=== PATIENT | female | born 1955 | race African-American/Black ===

== ENCOUNTER 2019-02-05 22:29 | Inpatient (IN) ==
[2019-02-05] MEDS ORDERED: ACETAMINOPHEN 500 MG TABLET PO STA (23:05)
[2019-02-05] MEDS ORDERED: SODIUM CHLORIDE 0.9% 1,000 ML IV STA (23:05)
[2019-02-06 00:52] LABS: PT Patient Result 11.2 SECS (9.6-12.2)
[2019-02-06] MEDS ORDERED: SODIUM CHLORIDE 0.9% 2,550 ML IV ONE (01:14)
[2019-02-06 01:15] LABS: Basophils % 0.3 % (0.0-0.8); Hematocrit 34.6 VOL% (35.7-47.0); Hemoglobin 11.3 GM/DL (12.0-16.0); Immature Granulocytes % 0.3 %; Immature Granulocytes Absolute 0.01 #; Lymphocytes # 0.1 10*3/uL (1.4-4.0); Lymphocytes % 4.6 % (21.3-54.2); Mean Corpuscular HGB Conc 32.7 GM/DL (32-36); Mean Corpuscular Volume 80.5 FL (87-102); Mean Platelet Volume 10.1 FL (9.6-12.0); Monocytes % 0.7 % (1.7-12.7); NRBC # 0.13 10*3/uL; Neutrophils % 94.1 % (38.7-73.9); Platelet Count 150 T/CUMM (130-400); Red Cell Distribution Width 13.4 % (9.3-17.3)
[2019-02-06 01:29] LABS: Apearance,Urine CLEAR (Clear); Bilirubin,Urine Negative (Negative); Blood, Urine Negative (Negative); Glucose,Urine (UA) Negative (Negative); Ketones,Urine Negative (Negative); Nitrite,Urine Negative (Negative); Protein,Urine Negative; RBC,Urine 2 /HPF (0-4); Squamous Epithelial Cell,Urine Occasional /HPF (0-10); Urine Color Yellow (Yellow); Urine Urobilinogen < 2.0 EU/DL (0.2-1.0); WBC,Urine 2 /HPF (0-6)
[2019-02-06 01:38] LABS: Alanine Aminotransferase 22 U/L (13-56); Albumin 3.1 G/DL (3.4-5.0); Alkaline Phosphatase 100 U/L (45-117); Amylase 24 U/L (25-115); Aspartate Amino Transferase 37 U/L (0-37); Blood Urea Nitrogen 10 MG/DL (7-18); Calcium 8.4 MG/DL (8.5-10.1); Estimated Glom Filtration Rate 60 ML/MIN; Glucose 136 MG/DL (74-106); Osmolality,Calculated 275.7 MOS/KG (273-304); Total Protein 6.3 G/DL (6.4-8.3)
[2019-02-06 01:42] LABS: Band Neutrophils 4 % (0-10); Lymphocytes 9 % (20-55); Nucleated Red Blood Cells 3 (0-5); Segmented Neutrophils 87 % (50-85); Total Cells Counted 100
[2019-02-06 01:43] LABS: Hypochromasia 1+; Platelet Estimate Normal; Smudge Cells Few
[2019-02-06 01:44] LABS: Microcytosis 1+; Polychromasia Slight; Target Cells 1+
[2019-02-06 01:45] LABS: Stomatocytes Slight
[2019-02-06] MEDS ORDERED: POTASSIUM CHLORIDE RIDER 20 MEQ in PREMIX 1 EACH IV STA ×2 (01:45→02:25)
[2019-02-06 01:48] LABS: Sedimentation Rate-Westergren 3 MM/HR (0-30)
[2019-02-06] MEDS ORDERED: VANCOMYCIN INJ 1,250 MG in SODIUM CHLORIDE 0.9% 250 ML IV ONE (02:00)
[2019-02-06] MEDS ORDERED: ACETAMINOPHEN 325 MG TABLET PO PRN (04:07)
[2019-02-06] MEDS ORDERED: PROMETHAZINE 25 MG/1 ML VIAL IM PRN (04:07)
[2019-02-06] MEDS ORDERED: ONDANSETRON 4 MG/2 ML VIAL IV PRN (04:07)
[2019-02-06 04:26] LABS: Barbiturates Screen,Urine Negative (Negative); Benzodiazepines Screen,Urine Negative (Negative); Cannabinoid Screen,Urine Negative (Negative); Opiate Screen,Urine Negative (Negative); Phencyclidine Screen,Urine Negative (Negative)
[2019-02-06] MEDS ORDERED: LEVOFLOXACIN INJ 500 MG in PREMIX 1 EACH IV SCH (04:30)
[2019-02-06] MEDS ORDERED: MAGNESIUM SULF RIDER 2 GM in PREMIX 1 EACH IV PRN (04:35)
[2019-02-06] MEDS ORDERED: MAGNESIUM SULF RIDER 4 GM in PREMIX 1 EACH IV PRN (04:35)
[2019-02-06] MEDS ORDERED: POTASSIUM CHLORIDE 20 MEQ TABLET PO PRN (04:35)
[2019-02-06 06:42] LABS: Basophils % 0.4 % (0.0-0.8); Eosinophils % 0.4 % (0.00-10.9); Hematocrit 40.2 VOL% (35.7-47.0); Hemoglobin 12.6 GM/DL (12.0-16.0); Immature Granulocytes % 1.2 %; Immature Granulocytes Absolute 0.06 #; Lymphocytes # 0.7 10*3/uL (1.4-4.0); Lymphocytes % 14.2 % (21.3-54.2); Mean Corpuscular HGB Conc 31.3 GM/DL (32-36); Mean Corpuscular Volume 83.9 FL (87-102); Monocytes % 1.2 % (1.7-12.7); NRBC # 0.43 10*3/uL; Neutrophils % 82.6 % (38.7-73.9); Red Blood Count 4.79 MC/CUMM (3.8-5.5); Red Cell Distribution Width 14.6 % (9.3-17.3); White Blood Count 5.1 T/CUMM (4-12)
[2019-02-06 06:47] LABS: Platelet Count 18 T/CUMM (130-400)
[2019-02-06 07:02] LABS: Albumin 2.7 G/DL (3.4-5.0); Bilirubin,Total 4.1 MG/DL (0.2-1.0); Calcium 7.9 MG/DL (8.5-10.1); Osmolality,Calculated 290.4 MOS/KG (273-304); Total Protein 5.5 G/DL (6.4-8.3)
[2019-02-06 07:11] LABS: Band Neutrophils 18 % (0-10); Lymphocytes 19 % (20-55); Nucleated Red Blood Cells 25 (0-5); Platelet Estimate Decreased; Segmented Neutrophils 60 % (50-85); Total Cells Counted 100
[2019-02-06 07:12] LABS: Anisocytosis 2+; Macrocytosis 1+; Poikilocytosis Slight
[2019-02-06] MEDS ORDERED: GLUCAGON 1 MG VIAL ONE (07:39)
[2019-02-06] MEDS ORDERED: PROPOFOL 1,000 MG/100 ML BOTTLE IV ONE (08:04)
[2019-02-06] MEDS ORDERED: SODIUM CHLORIDE 0.9% 1,000 ML IV ONE (08:08)
[2019-02-06] MEDS ORDERED: HYDROCORTISONE 100 MG VIAL IV STA (08:20)
[2019-02-06] MEDS ORDERED: NOREPINEPHRINE 4 MG/4 ML VIAL IV ONE (08:22)
[2019-02-06] MEDS: NOREPINEPHRINE 8 MG in SODIUM CHLORIDE 0.9% 242 ML IV PRN ×4 (08:26→20:42)
[2019-02-06] MEDS ORDERED: PROPOFOL 1,000 MG/100 ML BOTTLE IV SCH (08:30)
[2019-02-06] MEDS ORDERED: POTASSIUM CHLORIDE RIDER 10 MEQ in PREMIX 1 EACH IV PRN (08:32)
[2019-02-06] MEDS ORDERED: POTASSIUM CHLORIDE RIDER 20 MEQ in PREMIX 1 EACH IV PRN (08:32)
[2019-02-06] MEDS ORDERED: POTASSIUM CHLORIDE 20 MEQ/15 ML UDCUP PER TUBE ONE (08:33)
[2019-02-06 08:38] LABS: Allen Test Positive; Pt O2 Delivery Device Ventilator
[2019-02-06 08:39] LABS: ABG Base Excess -23.7 MMOL/L (-2.5-2.5); ABG HCO3 7.7 MMOL/L (20-26); ABG Oxygen Saturation 97.7 % (95-100); ABG PCO2 42.8 MM HG (35-48); ABG TCO2 8.7 MMOL/L (23-27)
[2019-02-06 08:40] LABS: ABG PH 6.907 (7.35-7.45)
[2019-02-06] MEDS ORDERED: SODIUM BICARBONATE 50 MEQ/50 ML VIAL IV ONE ×7 (08:41→19:55)
[2019-02-06] MEDS ORDERED: POTASSIUM CHLORIDE RIDER 100 ML IV ONE (08:42)
[2019-02-06] MEDS ORDERED: DOPamine 800 MG/250 ML PREMIX IV ONE (08:44)
[2019-02-06] MEDS ORDERED: LORazepam 2 MG/1 ML VIAL ONE (08:47)
[2019-02-06] MEDS ORDERED: LORazepam 2 MG/1 ML VIAL IV ONE (08:49)
[2019-02-06 08:53] LABS: Basophils % 0.2 % (0.0-0.8); Eosinophils # 0.1 10*3/uL (0.0-0.87); Eosinophils % 0.7 % (0.00-10.9); Hematocrit 30.3 VOL% (35.7-47.0); Immature Granulocytes % 1.8 %; Immature Granulocytes Absolute 0.16 #; Lymphocytes # 1.7 10*3/uL (1.4-4.0); Lymphocytes % 18.6 % (21.3-54.2); Mean Corpuscular HGB Conc 29.4 GM/DL (32-36); Mean Corpuscular Volume 88.3 FL (87-102); Monocytes % 0.6 % (1.7-12.7); NRBC # 0.71 10*3/uL; Neutrophils % 78.1 % (38.7-73.9); Red Blood Count 3.43 MC/CUMM (3.8-5.5); Red Cell Distribution Width 15.2 % (9.3-17.3); White Blood Count 8.9 T/CUMM (4-12)
[2019-02-06] MEDS ORDERED: fentaNYL INJ 1,250 MCG in SODIUM CHLORIDE 0.9% 225 ML IV PRN (08:56)
[2019-02-06] MEDS ORDERED: MIDAZOLAM 100 MG in SODIUM CHLORIDE 0.9% 80 ML IV PRN (08:56)
[2019-02-06 08:58] LABS: Platelet Count 28 T/CUMM (130-400)
[2019-02-06 08:59] LABS: Hemoglobin 8.9 GM/DL (12.0-16.0)
[2019-02-06] MEDS ORDERED: SERTRALINE 100 MG TABLET PO SCH (09:00)
[2019-02-06] MEDS ORDERED: PANTOPRAZOLE 40 MG TABLET PO SCH (09:00)
[2019-02-06] MEDS ORDERED: amLODIPine 10 MG TABLET PO SCH (09:00)
[2019-02-06] MEDS ORDERED: ENOXAPARIN 40 MG/0.4 ML SYRINGE SUBCUT SCH (09:00)
[2019-02-06] MEDS ORDERED: ASPIRIN EC 81 MG TABLET PO SCH (09:00)
[2019-02-06] MEDS ORDERED: GLUCAGON 1 MG VIAL IM ONE (09:05)
[2019-02-06 09:07] LABS: Albumin 1.5 G/DL (3.4-5.0); Bilirubin,Total 2.2 MG/DL (0.2-1.0); Calcium 6.6 MG/DL (8.5-10.1); Osmolality,Calculated 299.7 MOS/KG (273-304); Total Protein 3.4 G/DL (6.4-8.3)
[2019-02-06] MEDS: DOPamine 800 MG/250 ML PREMIX IV PRN ×2 (09:08→18:30)
[2019-02-06 09:17] LABS: Band Neutrophils 18 % (0-10); Lymphocytes 25 % (20-55); Metamyelocytes 5 %; Nucleated Red Blood Cells 16 (0-5); Platelet Estimate Decreased; Segmented Neutrophils 52 % (50-85); Total Cells Counted 100
[2019-02-06 09:19] LABS: Anisocytosis 1+; Macrocytosis 1+; Poikilocytosis Slight
[2019-02-06 09:34] LABS: ABG HCO3 9.7 MMOL/L (20-26); ABG PCO2 35.9 MM HG (35-48); ABG TCO2 9.5 MMOL/L (23-27); Allen Test Positive; Pt O2 Delivery Device Ventilator
[2019-02-06 09:36] LABS: ABG PH 7.041 (7.35-7.45)
[2019-02-06 09:45] LABS: Folate 14.3 NG/ML (5.4-24.0); Vitamin B12 224 PG/ML (211-911)
[2019-02-06 09:55] LABS: Basophils % 0.2 % (0.0-0.8); Eosinophils # 0.1 10*3/uL (0.0-0.87); Eosinophils % 0.7 % (0.00-10.9); Hematocrit 30.3 VOL% (35.7-47.0); Hemoglobin 8.9 GM/DL (12.0-16.0); Immature Granulocytes % 1.8 %; Immature Granulocytes Absolute 0.16 #; Lymphocytes # 1.7 10*3/uL (1.4-4.0); Lymphocytes % 18.6 % (21.3-54.2); Mean Corpuscular HGB Conc 29.4 GM/DL (32-36); Mean Corpuscular Volume 88.3 FL (87-102); Monocytes % 0.6 % (1.7-12.7); NRBC # 0.71 10*3/uL; Neutrophils % 78.1 % (38.7-73.9); Red Blood Count 3.43 MC/CUMM (3.8-5.5); Red Cell Distribution Width 15.2 % (9.3-17.3); White Blood Count 8.9 T/CUMM (4-12)
[2019-02-06 09:57] LABS: Platelet Count 28 T/CUMM (130-400)
[2019-02-06] MEDS ORDERED: SODIUM CHLORIDE 0.9% 1,000 ML IV PRN ×3 (09:57→19:17)
[2019-02-06 10:00] LABS: Band Neutrophils 18 % (0-10); Lymphocytes 25 % (20-55); Metamyelocytes 5 %; Segmented Neutrophils 52 % (50-85); Total Cells Counted 100
[2019-02-06 10:01] LABS: Anisocytosis 1+; Macrocytosis 1+; Platelet Estimate Decreased; Poikilocytosis Slight
[2019-02-06] MEDS: SODIUM BICARB INJ 150 MEQ in STERILE WATER INJ 850 ML IV SCH ×2 (10:07→14:51)
[2019-02-06] MEDS ORDERED: VASOPRESSIN 100 UNITS in SODIUM CHLORIDE 0.9% 95 ML IV PRN (10:29)
[2019-02-06] MEDS ORDERED: DEXTROSE 10% 500 ML IV SCH (10:41)
[2019-02-06] MEDS ORDERED: THIAMINE 200 MG/2 ML VIAL IV ONE (10:59)
[2019-02-06] MEDS ORDERED: FOLIC ACID INJ 1 MG in SYRINGE 1 EACH IV ONE (11:00)
[2019-02-06] MEDS: metroNIDAZOLE INJ 500 MG in PREMIX 1 EACH IV SCH ×2 (11:09→16:41)
[2019-02-06] MEDS ORDERED: HYDROCORTISONE 100 MG VIAL IV SCH (12:00)
[2019-02-06] MEDS ORDERED: PIPERACILLIN/TAZOBACTAM 3,375 MG in SODIUM CHLORIDE 0.9% 100 ML IV SCH (12:00)
[2019-02-06] MEDS ORDERED: EPINEPHrine 1 MG/ML VIAL ONE (12:30)
[2019-02-06] MEDS: SODIUM CHLORIDE 0.9% 1,000 ML IV SCH ×2 (12:58→13:10)
[2019-02-06] MEDS ORDERED: cefTRIAXone 2,000 MG in SYRINGE 1 EACH IV ONE (13:41)
[2019-02-06 13:46] LABS: Albumin 1.1 G/DL (3.4-5.0); Total Protein 2.7 G/DL (6.4-8.3)
[2019-02-06 13:48] LABS: Calcium 5.8 MG/DL (8.5-10.1)
[2019-02-06] MEDS ORDERED: VANCOMYCIN INJ 1,000 MG in SODIUM CHLORIDE 0.9% 250 ML IV SCH (14:00)
[2019-02-06] MEDS ORDERED: DEXTROSE 50% 25 GM/50 ML SYRINGE IV ONE (14:11)
[2019-02-06] MEDS ORDERED: CALCIUM CHLORIDE 1,000 MG/10 ML SYRINGE IV ONE (14:11)
[2019-02-06 15:10] VITALS: BP 131/83
[2019-02-06 16:23] LABS: Basophils % 0.3 % (0.0-0.8); Eosinophils # 0.1 10*3/uL (0.0-0.87); Eosinophils % 0.6 % (0.00-10.9); Immature Granulocytes % 2.5 %; Immature Granulocytes Absolute 0.27 #; Lymphocytes # 2.2 10*3/uL (1.4-4.0); Lymphocytes % 20.8 % (21.3-54.2); Mean Corpuscular HGB Conc 29.6 GM/DL (32-36); Mean Corpuscular Volume 89.3 FL (87-102); Mean Platelet Volume 10.2 FL (9.6-12.0); Monocytes % 2.3 % (1.7-12.7); NRBC # 0.73 10*3/uL; Neutrophils % 73.5 % (38.7-73.9); Red Blood Count 1.78 MC/CUMM (3.8-5.5); Red Cell Distribution Width 15.9 % (9.3-17.3); White Blood Count 10.6 T/CUMM (4-12)
[2019-02-06 16:27] LABS: Platelet Count 77 T/CUMM (130-400)
[2019-02-06 16:30] LABS: Hematocrit 15.9 VOL% (35.7-47.0); Hemoglobin 4.7 GM/DL (12.0-16.0)
[2019-02-06] MEDS: SODIUM BICARB INJ 150 MEQ in DEXTROSE 5% 850 ML IV SCH ×2 (16:32→20:40)
[2019-02-06 16:57] LABS: PT Patient Result > 200.0 SECS (9.6-12.2)
[2019-02-06 17:00] LABS: INR > 20.0
[2019-02-06 17:01] LABS: Partial Thromboplastin Time > 320.0 SECS (20.8-36.0)
[2019-02-06] MEDS ORDERED: OXYMETAZOLINE 0.05% NASAL SPRAY 15 ML BOTTLE BOTH NARES PRN (17:31)
[2019-02-06 18:08] LABS: Basophils # 0.1 10*3/uL (0.0-0.2); Basophils % 0.4 % (0.0-0.8); Eosinophils # 0.2 10*3/uL (0.0-0.87); Eosinophils % 0.7 % (0.00-10.9); Hematocrit 32.8 VOL% (35.7-47.0); Immature Granulocytes % 4.8 %; Immature Granulocytes Absolute 1.07 #; Lymphocytes # 3.6 10*3/uL (1.4-4.0); Lymphocytes % 16.2 % (21.3-54.2); Mean Corpuscular HGB Conc 27.4 GM/DL (32-36); Mean Corpuscular Volume 94.3 FL (87-102); Mean Platelet Volume 10.3 FL (9.6-12.0); Monocytes % 2.4 % (1.7-12.7); NRBC # 1.69 10*3/uL; Neutrophils % 75.5 % (38.7-73.9); Platelet Count 83 T/CUMM (130-400); Red Blood Count 3.48 MC/CUMM (3.8-5.5); Red Cell Distribution Width 16.1 % (9.3-17.3); White Blood Count 22.4 T/CUMM (4-12)
[2019-02-06 18:16] LABS: Band Neutrophils 7 % (0-10); Eosinophils 3 % (0-10); Lymphocytes 30 % (20-55); Metamyelocytes 1 %; Nucleated Red Blood Cells 14 (0-5); Platelet Estimate Decreased; Segmented Neutrophils 57 % (50-85); Total Cells Counted 100
[2019-02-06 18:22] LABS: Sedimentation Rate-Westergren 2 MM/HR (0-30)
[2019-02-06 18:47] LABS: Eosinophils 1 % (0-10); Lymphocytes 34 % (20-55); Nucleated Red Blood Cells 30 (0-5); Platelet Estimate Decreased; Segmented Neutrophils 61 % (50-85); Total Cells Counted 100
[2019-02-06 18:55] LABS: PT Patient Result > 200.0 SECS (9.6-12.2)
[2019-02-06 19:01] LABS: INR > 20.0; Partial Thromboplastin Time > 320.0 SECS (20.8-36.0)
[2019-02-06 19:14] LABS: Hematocrit 22.5 VOL% (35.7-47.0)
[2019-02-07] MEDS ORDERED: EPINEPHrine 1 MG/10 ML SYRINGE ONE (21:26)
[2019-02-07] MEDS ORDERED: SODIUM BICARBONATE 10 MEQ/10 ML SYRINGE IV ONE (21:26)
[2019-02-08 08:48] LABS: Hemoglobin A1 (Alkaline) 97.6 % (96.5-98.5); Hemoglobin A2 (Alkaline) 2.4 % (1.5-3.5)
== END 2019-02-06 21:28 | disposition expired | DRG 720 ==
LOC: N.ED 22:29 → N.EDINP 22:29 → OBSVTOIN 02-06 03:01 → SUATTDRO 02-06 03:01 → N.2W 02-06 04:06 → N.5E 02-06 05:56 → N.ICU 02-06 08:01
PROVIDERS: ADMIT Family Medicine; ATTEND Family Medicine